=== PATIENT | female | born 1955 | race Two or more races ===

== ENCOUNTER 2023-08-01 11:30 | Inpatient (IN) | payer OTHER ==
[~2023-08-01] VITALS: Ht 157.5 cm; Wt 73.5 kg
[2023-08-14] MEDS ORDERED: ALAWAY10 ML (13:10)
[2023-08-14] MEDS ORDERED: RESTASIS1 EACH (13:11)
[2023-08-14] MEDS ORDERED: CALCIUM 600 MG1 EAC8 (13:11)
[2023-08-14] MEDS ORDERED: LISINOPRIL-HCT1 EAC2 (13:11)
[2023-08-14] MEDS ORDERED: SYNTHROID88 MCG (13:11)
[2023-08-14] MEDS ORDERED: SIMVASTATIN20 MG (13:11)
[2023-08-14] MEDS ORDERED: OMEPRAZOLE20 MG (13:11)
[2023-08-14] MEDS ORDERED: MAXIMUM D3325 MCG (13:11)
[2023-08-14] MEDS ORDERED: TIZANIDINE HCL4 MG (13:11)
[2023-08-14] MEDS ORDERED: CEFOXITIN SODIUM 2,000 MG VIAL IV ONE ×2 (13:41→16:00)
[2023-08-14] MEDS ORDERED: TRANEXAMIC ACID 100MG/1ML (1000MG) AMPUL IV ONE ×4 (15:18→16:00)
[2023-08-14] MEDS ORDERED: LIDOCAINE HCL 1%/EPINEPHRINE 20ML VIAL IJ ONE ×2 (15:18→16:00)
[2023-08-14] MEDS ORDERED: POVIDONE-IODINE 3 EA MED..SWAB TOP ONE (15:21)
[2023-08-14] MEDS ORDERED: VANCOMYCIN HCL 1,000 MG VIAL ONE (15:30)
[2023-08-14] MEDS ORDERED: BUPIVACAINE HCL 30 ML VIAL IJ ONE (16:00)
[2023-08-14] MEDS ORDERED: POVIDONE-IODINE 0.75 OZ PACKET TOP ONE (16:00)
[2023-08-14] MEDS ORDERED: ONDANSETRON HCL 2 MG/ML VIAL IV PRN (17:15)
[2023-08-14] MEDS ORDERED: MORPHINE SULFATE 4 MG/ML CARTRIDGE IV PRN (17:15)
[2023-08-14] MEDS ORDERED: OxyCODONE HCL 5 MG TABLET (ROXICODONE) PO PRN (17:15)
[2023-08-14] MEDS ORDERED: SODIUM CHLORIDE 0.45 % 1,000 ML IV SCH (17:15)
[2023-08-14] MEDS ORDERED: ACETAMINOPHEN 500 MG GEL..CAP PO SCH (18:00)
[2023-08-15] MEDS ORDERED: GABAPENTIN 300 MG CAPSULE PO SCH (01:00)
[2023-08-15] MEDS ORDERED: CEFAZOLIN SODIUM 1,000 MG VIAL IV SCH (01:00)
[2023-08-15 06:13] LABS: HEMATOCRIT 37.6 % (36.0-45.00); HEMOGLOBIN 13.3 g/dL (12.0-15.00); MEAN CELL VOLUME 83.8 fL (80.00-100.00); MEAN CORPUSCULAR HEMOGLOBIN 29.7 pg (27.00-32.0); MEAN CORPUSCULAR HGB CONC 35.5 g/dl (32.0-36.0); PLATELET COUNT 180 K/uL (150-450); RED BLOOD COUNT 4.49 M/uL (4.00-6.00); RED CELL DISTRIBUTION WIDTH 15.4 % (11.5-14.5)
[2023-08-15] MEDS ORDERED: ELIQUIS2.5 MG PO (08:03)
[2023-08-15] MEDS ORDERED: PERCOCET 5-3251 EACH PO (08:03)
[2023-08-15] MEDS ORDERED: CEFADROXIL500 MG PO (08:03)
[2023-08-15] MEDS ORDERED: SENNOSIDES 1 TAB TABLET PO SCH (09:00)
[2023-08-15] MEDS ORDERED: APIXABAN 2.5 MG TABLET PO SCH (09:00)
[2023-08-15] MEDS ORDERED: HYDROCHLOROTHIAZIDE 12.5 MG CAPSULE PO SCH (11:19)
[2023-08-15] MEDS ORDERED: ENALAPRILAT DIHYDRATE 1.25 MG/ML VIAL IV PRN (11:30)
[2023-08-15] MEDS ORDERED: Cyanocobalamin/Mecobalamin 1 TAB.SL SL SCH (14:39)
[2023-08-15] MEDS ORDERED: VITAMIN B COMPLEX 1 EACH PO SCH (14:39)
[2023-08-16 05:22] LABS: HEMOGLOBIN 13.1 g/dL (12.0-15.00); MEAN CELL VOLUME 84.9 fL (80.00-100.00); MEAN CORPUSCULAR HGB CONC 35.4 g/dl (32.0-36.0); PLATELET COUNT 173 K/uL (150-450); RED BLOOD COUNT 4.36 M/uL (4.00-6.00); RED CELL DISTRIBUTION WIDTH 15.1 % (11.5-14.5)
[2023-08-16] MEDS ORDERED: LEVOTHYROXINE SODIUM 88 MCG TABLET PO SCH (06:00)
[2023-08-16] MEDS ORDERED: IRON FUM,PS/FOLIC ACID/VITC/B3 1 CAP CAPSULE PO SCH (09:00)
== END 2023-08-16 17:15 | DRG 470 ==
LOC: SURG 08-07 11:30 → O/R 08-14 06:48 → SURH 08-14 18:03
PROVIDERS: ADMIT Orthopaedic Surgery; ATTEND Orthopaedic Surgery
PROC: 0SRC0J9 Replacement of Right Knee Joint with Synthetic Substitute, Cemented, Open Approach (ICD-10-PCS; principal; 2023-08-14 14:15)
DX: M17.11 Unilateral primary osteoarthritis, right knee (principal); D62 Acute posthemorrhagic anemia; M22.11 Recurrent subluxation of patella, right knee; E03.9 Hypothyroidism, unspecified; I10 Essential (primary) hypertension